=== PATIENT | male | born 1970 | race Caucasian/White ===

== ENCOUNTER 2023-04-25 19:06 | Emergency (ER) | payer OTHER ==
--- NOTE | 2023-04-25 19:45 | ED ---
Chest Pain HPI - General Chief Complaint: Chest Pain Stated Complaint: Chest Pain Time Seen by Provider: 04/25/23 19:13 Source: patient, EMS Mode of arrival: EMS Limitations: no limitations - History of Present Illness Initial Comments: This patient is a 52-year-old man who presents with chest pain that has been going on since about 4 PM. The patient states that he had just been talking with his girlfriend on the phone after group therapy. He noticed the pain. He states his chest also hurts when he presses on it. Patient states this is associated with numbness of both arms. Patient states he had a similar episode was seen at hospital on the [facility]. He was told he nearly had a small heart attack. He states that they also performed an echocardiogram that he states was okay. Patient does have smoking history. MD Complaint: chest pain -: hour(s) Onset: during rest Pain Location: substernal, left chest Pain Radiation: none Improves With: nothing Worsens With: nothing Treatments Prior to Arrival: none - Related Data Home Medications Medication Instructions Recorded Confirmed Acetaminophen [Tylenol] 650 mg PO Q4H PRN 04/25/23 04/25/23 Aspirin 325 mg PO ONCE 04/25/23 04/25/23 Aspirin EC [Ecotrin Low Dose] 81 mg PO DAILY 04/25/23 04/25/23 Atorvastatin [Lipitor] 80 mg PO HS 04/25/23 04/25/23 Calamine/Zinc Oxide Lotion 1 applic TOPICAL DIRECTED 04/25/23 04/25/23 [Calamine Lotion] Fluticasone Nasal Roll [Flonase 1 spray EA NOSTRIL DAILY 04/25/23 04/25/23 Nasal Roll] Fluticasone Propion/Salmeterol 1 puff INHALATION RT-BID 04/25/23 04/25/23 [Fluticasone-Salmeterol 250-50] Folic Acid 1 mg PO DAILY 04/25/23 04/25/23 Gabapentin 600 mg PO TID 04/25/23 04/25/23 Ibuprofen [Motrin Ib] 600 mg PO Q6H PRN 04/25/23 04/25/23 Lidocaine 5% Patch [Lidoderm] 1 patch TOPICAL DAILY 04/25/23 04/25/23 Naltrexone HCl [Revia] 50 mg PO DAILY 04/25/23 04/25/23 Nicotine 21Mg/24Hr Patch [Habitrol] 1 patch TRANSDERM DAILY 04/25/23 04/25/23 Nitroglycerin Sl Tabs [Nitrostat] 0.4 mg SUBLINGUAL Q5M PRN 04/25/23 04/25/23 OXcarbazepine [Trileptal] 300 mg PO BID 04/25/23 04/25/23 Omeprazole [PriLOSEC] 40 mg PO DAILY 04/25/23 04/25/23 Prazosin [Minipress] 1 mg PO HS 04/25/23 04/25/23 QUEtiapine [SEROquel] 100 mg PO HS 04/25/23 04/25/23 Sucralfate [Carafate] 1 gm PO QID 04/25/23 04/25/23 Thiamine [Vitamin B-1] 100 mg PO DAILY 04/25/23 04/25/23 atenoloL [Tenormin] 25 mg PO DAILY 04/25/23 04/25/23 busPIRone HCl [Buspar] 10 mg PO TID 04/25/23 04/25/23 guaiFENesin [guaiFENesin Oral 10 mg PO Q4H PRN 04/25/23 04/25/23 Solution] Allergies Allergy/AdvReac Type Severity Reaction Status Date / Time bupropion [From Wellbutrin] Allergy Rash/Hives Verified 04/25/23 20:26 Review of Systems ROS Statement: Those systems with pertinent positive or pertinent negative responses have been documented in the HPI. ROS Other: All systems not noted in ROS Statement are negative. Constitutional: Denies: fever, chills Respiratory: Denies: cough, dyspnea Cardiovascular: Reports: chest pain. Denies: palpitations, edema, syncope Gastrointestinal: Denies: abdominal pain, nausea, vomiting, diarrhea Genitourinary: Denies: dysuria, hematuria Musculoskeletal: Denies: back pain Skin: Denies: rash Neurological: Reports: paresthesias. Denies: headache, weakness EKG Findings - EKG Results: EKG: interpreted by ALBERTO, sinus rhythm (Rate 79 bpm) - Blocks, [place], Hypertrophy, ST Abn: AV and intraventricular conduction: left anterior fascicular block - IA, Pacemaker, Normal: Myocardial infarction: lateral IA (old age or indeterminate) Past Medical History Past Medical History: Atrial Fibrillation, Chest Pain / Angina History of Any Multi-Drug Resistant Organisms: None Reported Past Surgical History: No Surgical Hx Reported Past Psychological History: Depression Smoking Status: Current every day smoker Past Alcohol Use History: Abuse Past Drug Use History: None Reported General Exam Limitations: no limitations General appearance: alert, in no apparent distress Head exam: Present: atraumatic, normocephalic Eye exam: Present: normal appearance. Absent: scleral icterus, conjunctival injection Neck exam: Present: normal inspection Respiratory exam: Present: normal lung sounds bilaterally, chest wall tenderness. Absent: respiratory distress, wheezes, rales, rhonchi, stridor, accessory muscle use Cardiovascular Exam: Present: regular rate, normal rhythm, normal heart sounds. Absent: systolic murmur, diastolic murmur, rubs, gallop GI/Abdominal exam: Present: soft. Absent: distended, tenderness, guarding, rebound, rigid, mass Extremities exam: Present: normal inspection, normal capillary refill. Absent: pedal edema, calf tenderness Back exam: Present: normal inspection. Absent: CVA tenderness (R), CVA tenderness (L) Neurological exam: Present: alert Skin exam: Present: warm, dry, intact, normal color. Absent: rash Course Vital Signs 04/25/23 04/25/23 04/25/23 19:25 20:42 22:06 Temperature 97.7 F Pulse Rate 85 83 86 Respiratory 20 22 Rate Blood Pressure 138/84 140/95 O2 Sat by Pulse 96 97 Oximetry 04/25/23 04/25/23 22:15 22:30 Temperature Pulse Rate 81 80 Respiratory 16 Rate Blood Pressure 131/87 O2 Sat by Pulse 96 Oximetry Chest Pain MDM - MDM The patient had chest x-ray that I interpreted as negative for acute infiltrate, pneumothorax, congestive heart failure. Was pt. sent in by a medical professional or institution (, PA, PROPERTY DISPOSAL MANAGER, urgent care, hospital, or longterm...) When possible be specific @ -[No] Did you speak to anyone other than the patient for history (EMS, parent, family, police, friend...)? What history was obtained from this source @ -[EMS did contribute to history Did you review nursing and triage notes (agree or disagree)? Why? @ -[I reviewed and agree with nursing and triage notes] Were old charts reviewed (outside hosp., previous admission, EMS record, old EKG, old radiological studies, urgent care reports/EKG's, longterm records)? Report findings @ -[No old charts were reviewed] Differential Diagnosis (chest pain, altered mental status, abdominal pain women, abdominal pain men, vaginal bleeding, weakness, fever, dyspnea, syncope, headache, dizziness, GI bleed, back pain, seizure, CVA, palpatations, mental health, musculoskeletal)? @ -[Differential Chest Pain: Stable Angina, Unstable Angina, STEMI, NSTEMI Aortic Dissection, Pneumothorax, Musculoskeletal, Esophageal Spasm GERD, Cholecystitis, Pancreatitis, Zoster, this is not meant to be an all-inclusive list. EKG interpreted by me (3pts min.). @ -[I interpreted as above] X-rays interpreted by me (1pt min.). @ -[I interpreted as above CT interpreted by me (1pt min.). @ -[None done] U/S interpreted by me (1pt. min.). @ -[None done] What testing was considered but not performed or refused? (CT, X-rays, U/S, labs)? Why? @ -[None] What meds were considered but not given or refused? Why? @ -[None] Did you discuss the management of the patient with other professionals (professionals i.e. , PA, PROPERTY DISPOSAL MANAGER, lab, RT, psych nurse, social human services assistants, raveler, teacher, lodge officer, case sealer)? Give summary @ -[No] Was smoking cessation discussed for >3mins.? @ -[No] Was critical care preformed (if so, how long)? @ -[No] Were there social determinants of health that impacted care today? How? (Homelessness, low income, unemployed, alcoholism, drug addiction, transportation, low edu. Level, literacy, decrease access to med. care, half-way, rehab)? @ -[No] Was there de-escalation of care discussed even if they declined (Discuss DNR or withdrawal of care, Hospice)? DNR status @ -[No] What co-morbidities impacted this encounter? (DM, HTN, Smoking, COPD, CAD, Cancer, CVA, ARF, Chemo, Hep., AIDS, mental health diagnosis, sleep apnea, morbid obesity)? @ -[None] Was patient admitted / discharged? Hospital course, mention meds given and route, prescriptions, significant lab abnormalities, going to OR and other pertinent info. @ -[The patient is a 52-year-old man here with episode of chest pain. His symptoms have resolved and his initial workup is negative. Discussed admission, but the patient at this point would like to go back to the rehab facility and finish there. Discussed importance of having follow-up for stress test and also need to return should any symptoms recur or new symptoms develop. Return parameters discussed and all questions answered Undiagnosed new problem with uncertain prognosis? @ -[No] Drug Therapy requiring intensive monitoring for toxicity (Heparin, Nitro, Insulin, Cardizem)? @ -[No] Were any procedures done? @ -[No] Diagnosis/symptom? @ -[Acute chest pain Acute, or Chronic, or Acute on Chronic? @ -[Acute Uncomplicated (without systemic symptoms) or Complicated (systemic symptoms)? @ -[Uncomplicated Side effects of treatment? @ -[No] Exacerbation, Progression, or Severe Exacerbation? @ -[No] Poses a threat to life or bodily function? How? (Chest pain, [place], IA, pneumonia, PE, COPD, DKA, ARF, appy, cholecystitis, CVA, Diverticulitis, Homicidal, Suicidal, threat to staff... and all critical care pts) @ -[No Disposition Clinical Impression: Chest pain Disposition: HOME SELF-CARE Condition: Good Instructions (If sedation given, give patient instructions): Chest Pain (ED) Is patient prescribed a controlled substance at d/c from ED?: No Referrals: Nonstaff,Physician [REFERRING] - 1-2 days Lurdes Badillo MD [STAFF PHYSICIAN] - 1-2 days
[2023-04-25] MEDS: ASPIRIN 81 MG PO STA (19:46)
[2023-04-25 19:50] LABS: Basophils # (A) 0.1 k/uL (0-0.2); Basophils % (A) 1 %; Eosinophils # (A) 0.2 k/uL (0-0.7); Eosinophils % (A) 3 %; HCT 43.2 % (39.0-53.0); HGB 14.7 gm/dL (13.0-17.5); Lymphocytes # (A) 1.1 k/uL (1.0-4.8); Lymphocytes % (A) 19 %; MCH 33.9 pg (25.0-35.0); MCHC 33.9 g/dL (31.0-37.0); MCV 99.9 fL (80.0-100.0); Mean Platelet Volume 8.3; Monocytes # (A) 0.4 k/uL (0-1.0); Monocytes % (A) 7 %; Neutrophils % (A) 67 %; Platelet Count 176 k/uL (150-450); RBC 4.33 m/uL (4.30-5.90); RDW 12.4 % (11.5-15.5); WBC 5.9 k/uL (3.8-10.6)
[2023-04-25 19:54] VITALS: TEMP 97.7
[2023-04-25 20:15] LABS: ALT 21 U/L (4-49); AST 25 U/L (17-59); African American GFR (CKD) >90 (>60 ml/min/1.73 sqM); Albumin 3.9 g/dL (3.5-5.0); Alkaline Phosphatase 58 U/L (38-126); Anion Gap 9 mmol/L; Blood Urea Nitrogen 14 mg/dL (9-20); Calcium 9.7 mg/dL (8.4-10.2); Carbon Dioxide 21 mmol/L (22-30); Chloride 109 mmol/L (98-107); Glucose 106 mg/dL (74-99); Magnesium 1.9 mg/dL (1.6-2.3); Non-African American GFR(CKD) >90 (>60 ml/min/1.73 sqM); Potassium 4.1 mmol/L (3.5-5.1); Sodium 139 mmol/L (137-145); Total Bilirubin 0.4 mg/dL (0.2-1.3); Total Protein 6.5 g/dL (6.3-8.2)
[2023-04-25] MEDS: NITROGLYCERIN SL TABS 0.4 MG TAB SUBLINGUAL STA (20:27)
[2023-04-25 20:31] LABS: INR 1.1 (<1.2); Partial Thromboplastin Time 26.5 sec (22.0-30.0); Prothrombin Time 11.5 sec (10.0-12.5)
--- NOTE | 2023-04-25 20:33 | XR ---
EXAMINATION TYPE: XR chest 2V DATE OF EXAM: 04/25/2023 8:25 PM CLINICAL INDICATION:Male, 52 years old with history of Chest Pain; [facility] COMPARISON: None TECHNIQUE: XR chest 2V. Frontal and lateral views of the chest.. FINDINGS: Lines/Tubes/Devices: No indwelling lines are seen. EKG leads overlie the chest. Heart/mediastinum: Heart size is normal. Mediastinum appears normal. Pulmonary vascularity: Not increased, Lungs/Pleura: There is no evidence of pleural effusion, focal consolidation, or pneumothorax. Questi onable mild prominence of hilar lung markings, can be related to hypertension. Musculoskeletal: No acute osseous abnormality demonstrated in the limits of the exam. Other findings: None. IMPRESSION: No acute cardiopulmonary abnormality.
[2023-04-25] MEDS: traMADol 50 MG TAB PO STA (20:41)
[2023-04-25] MEDS: ALBUTEROL NEBULIZED 2.5 MG/3 ML INHALATION STA (22:06)
[2023-04-25 22:48] VITALS: PULSE 80
[2023-04-25 22:49] VITALS: BP 131/87; RESP 16
== END 2023-04-25 23:15 | disposition home or self-care (01) ==
LOC: EC 19:06
DX: R07.89 Other chest pain (principal); F17.200 Nicotine dependence, unspecified, uncomplicated; Z88.8 Allergy status to other drugs, medicaments and biological substances
CPT/HCPCS: 36415; 71046; 80053; 83735; 84484; 85025; 85610; 85730; 93005; 94640; 99285